=== PATIENT | male | born 1995 | race Caucasian/White ===

== ENCOUNTER → 2018-05-19 18:57 | Outpatient (CLI) | payer OTHER, SELFPAY ==
[2018-05-20 14:53] LABS: Urine Chlamydia NOT DETECTED; Urine N gonorrhoeae NOT DETECTED
== END ==
PROVIDERS: Visit Provider Physician Assistant
DX: Z11.3 Encounter for screening for infections with a predominantly sexual mode of transmission (principal)
CPT/HCPCS: 87491; 87591

== ENCOUNTER → 2018-05-19 19:00 | Outpatient (CLI) | payer OTHER, SELFPAY ==
[2018-05-22 11:08] LABS: RPR Screen Nonreactive (Nonreactive)
[2018-05-22 13:20] LABS: HSV 1 IgM Screen Negative (Negative); HSV 2 IgM Screen Negative (Negative)
== END ==
PROVIDERS: Visit Provider Physician Assistant
DX: Z11.3 Encounter for screening for infections with a predominantly sexual mode of transmission (principal)
CPT/HCPCS: 36415; 86592; 86694; 87491; 87591